=== PATIENT | male | born 1980 | race African-American/Black ===

== ENCOUNTER 2018-10-29 00:12 | Emergency (ER) | payer OTHER ==
[~2018-10-29] VITALS: Ht 180.3 cm; Wt 73.9 kg
--- NOTE | 2018-10-29 00:25 | NUR ---
TECH AT BEDSIDE FOR EKG
[2018-10-29 00:32] VITALS: BP 116/73
[2018-10-29] MEDS ORDERED: IBUPROFEN 600 MG TABLET PO ONE ×2 (00:58→01:00)
== END 2018-10-29 01:24 | disposition home or self-care (01) ==
LOC: ER 00:20
DX: R07.89 Other chest pain (principal)
CPT/HCPCS: 71045; 93005; 99283; A4606; Z7610